=== PATIENT | female | born 1970 | race Caucasian/White ===

== ENCOUNTER → 2016-10-07 | Outpatient (CLI) | payer BC, OTHER ==
[~2016-10-07] MED LIST: ALPRAZOLAM; BUSPIRONE HCL7.5 MG PO; CHANTIX PO; CLOPIDOGREL75 MG PO; COUMADIN PO; DARVOCET-N 1001 TAB PO; DOXYCYCLINE PO; FLEXERIL10 MG PO; FLORINEF ACETA0.1 MG PO; HYDROCODON-ACE1 EA14 PO; LEXAPRO20 MG PO; LIPITOR PO; LODINE PO; LORTAB 10-3251 EACH PO; LORTAB 5-325 M1 EACH PO; LORTAB 5/500 TA1 TA1 PO; LYRICA PO; METAXALONE800 MG PO; NEURONTIN; NEURONTIN PO; PHENERGAN25 MG PO; PLAVIX PO; ROBAXIN PO; ROBAXIN500 MG PO; SKELAXIN PO; TRAMADOL HCL50 M1 PO; TUSSIN MAX15 MG/5 M1 PO; TYLENOL #3 PO; VIBRAMYCIN100 M1 PO; VICODIN 5/500 T1 TAB PO; VISTARIL50 MG PO; VOLTAREN75 MG PO; WELLBUTRIN PO
--- NOTE | ~2016-10-07 | CT134 ---
[facility] A Service of [facility] & [facility] RADIOLOGY TEXT RESULTS PATIENT: RICKY LOGAN LOCATION: CIVR : [birth year] UNIT #: [id number] AGE: [address]: Lisa Garcia MD SEX: F ORDER DR: [id number] [facility] [address] [place], [place] [address] [id number] O MR#: [id number] Acc #: [id number] NAME: RICKY LOGAN. : 1970 SEX: F STUDY DATE/TIME: 10/07/2016 9:26 UNIT: CIVR ROOM: STUDY DESCRIPTION: CT Guide Attending Physician: Lisa Garcia M.D. Ordering Physician: Lisa Garcia M.D. Primary Care Physician: Aurora Zhang M.D. MEDICAL IMAGING REPORT This report is preliminary unless electronic signature is present EXAM Bone marrow biopsy. INDICATIONS Iron deficiency anemia. This CT exam was performed with one or more of the following radiation dose reduction techniques: automatic exposure control, adjustment of mA and/or kV according to patient size, and iterative reconstruction. PROCEDURE Risks, benefits, and alternatives were explained to the patient and signed, informed consent was obtained. She was placed prone on the CT scanner gantry. Preliminary CT scan was performed through the region of interest and appropriate site overlying the patient's iliac bone was selected. The overlying skin was marked and the patient was prepped and draped in usual sterile fashion. Time-out was performed as per protocol. Skin and subcutaneous tissues were anesthetized with buffered lidocaine. Coaxial needle was then advanced into the left iliac bone and repeat CT scan confirmed appropriate positioning of the needle which was then advanced into the bone marrow. Bone marrow aspirate was obtained and then the needle was advanced further into the bone marrow and then removed achieving an adequate core sample. The patient did receive conscious sedation consisting of 4 mg of Versed and 175 mcg fentanyl and continuous monitoring was provided throughout the procedure. IMPRESSION Technically successful bone marrow biopsy as noted above. CT was used during the procedure and permanent images were saved. Dictated by... Cathryn Pozo M.D. [facility]. [facility] A Service of [facility] & [facility] RADIOLOGY TEXT RESULTS PATIENT: RICKY LOGAN LOCATION: [facility] #: [id number] : [birth year] UNIT #: [id number] AGE: [address]: Lisa Garcia MD SEX: F ORDER DR: THIS IS AN ELECTRONICALLY VERIFIED REPORT Cathryn Pozo M.D. at 10/08/2016 5:24 PM AFF/dj TD: 10/08/2016 11:56 JOB #: [id number] MEDICAL IMAGING REPORT COPY
[2016-10-07 07:47] LABS: HEMATOCRIT 43.9 % (35.0-45.0); HEMOGLOBIN 14.7 gm/dL (12.0-16.0); MEAN CORPUSCULAR HEMOGLOBIN 33.4 PG (28-34); MEAN CORPUSCULAR HGB CONC 33.4 g/dL (30-36); MEAN PLATELET VOLUME 8.4 FL (6.5-11.5); RED BLOOD COUNT 4.39 X10e (3.90-5.30); WHITE BLOOD COUNT 12.8 X10e3 (4.0-10.5)
[2016-10-07 08:06] LABS: PARTIAL THROMBOPLASTIN TIME 25.9 SECONDS (23.5-31.3)
== END | disposition home or self-care (01) ==
LOC: CIVR 07:06
PROVIDERS: Internal Medicine Hematology
DX: D50.9 Iron deficiency anemia, unspecified (principal); D72.823 Leukemoid reaction; F41.8 Other specified anxiety disorders; F17.200 Nicotine dependence, unspecified, uncomplicated; Z88.6 Allergy status to analgesic agent; Z88.2 Allergy status to sulfonamides; Z91.040 Latex allergy status; Z95.5 Presence of coronary angioplasty implant and graft
CPT/HCPCS: 38221; G0364; 36415; 77012; 85027; 85610; 85730; 88237; 88264; 88271; 88275; 88305; 88311; 99144; 99152; 99153; J2250; J3010

== ENCOUNTER 2017-03-06 16:31 | Emergency (ER) | payer OTHER ==
--- NOTE | ~2017-03-06 | CR72 ---
[facility] A Service of [facility] RADIOLOGY TEXT RESULTS PATIENT: RICKY LOGAN LOCATION: SED : [birth year] UNIT #: [id number] AGE: [address]: Winston Espinoza MD SEX: F ORDER DR: [id number] [place] [address] [id number] E MR#: [id number] Acc #: [id number] NAME: RICKY LOGAN. : 1970 SEX: F STUDY DATE/TIME: 03/06/2017 16:52 UNIT: SED ROOM: STUDY DESCRIPTION: CR Chest Single View Portable Attending Physician: Winston Espinoza M.D. Ordering Physician: Winston Espionza M.D. Primary Care Physician: Aurora Zhang M.D. MEDICAL IMAGING REPORT This report is preliminary unless electronic signature is present. EXAM Frontal chest, 03/06/2017 INDICATION Shortness of air, overdose today. Symptoms began prior to arrival. TECHNIQUE Frontal chest was performed. COMPARISON 08/31/2016 FINDINGS Cardiac silhouette within normal limits. The vascularity is unremarkable. Lungs are clear. No effusion or pneumothorax. IMPRESSION Negative chest. No change. Dictated by... Guero Tompkins M.D. THIS IS AN ELECTRONICALLY VERIFIED REPORT Guero Tompkins M.D. at 03/07/2017 11:43 AM YELITZA/richie TD: 03/07/2017 02:57 JOB #: [id number] [facility] A Service of [facility] RADIOLOGY TEXT RESULTS PATIENT: RICKY LOGAN LOCATION: SED : [birth year] UNIT #: [id number] AGE: [address]: Winston Espinoza MD SEX: F ORDER DR: MEDICAL IMAGING REPORT Page 1 of 1
--- NOTE | ~2017-03-06 | EKG ---
PATIENT: RICKY LOGAN UNIT #: [id number] Ventricular Rate: 58 BPM Atrial Rate: 58 BPM P-R Interval: 136 ms QRS Duration: 86 ms Q-T Interval: 482 ms QTC Calculation(Bezet): 473 ms P [place]: 77 degrees Calculated R [place]: 75 degrees Calculated T [place]: 79 degrees Diagnosis Line: Sinus bradycardia Diagnosis Line: Septal infarct , age undetermined Diagnosis Line: Abnormal ECG Diagnosis Line: Diagnosis Line: Confirmed by JULIET SAPP MD ([id number]) on Diagnosis Line: 03/07/2017 3:25:27 PM INTERPRETING MD: SEKOU VASQUEZ
[~2017-03-06 16:31] MED LIST changes: -BUSPIRONE HCL7.5 MG PO; -HYDROCODON-ACE1 EA14 PO; -LEXAPRO20 MG PO; -METAXALONE800 MG PO; -VISTARIL50 MG PO
[2017-03-06] MEDS ORDERED: METAXALONE800 MG PO (16:52)
[2017-03-06] MEDS ORDERED: BUSPIRONE HCL7.5 MG PO (16:53)
[2017-03-06] MEDS ORDERED: HYDROCODON-ACE1 EA14 PO (16:55)
[2017-03-06] MEDS ORDERED: LEXAPRO20 MG PO (16:55)
[2017-03-06 17:28] LABS: BASOPHIL# 0.2 X10e3 (0-0.3); BASOPHIL% 1.4 % (0-2.5); EOSINOPHIL# 0.4 X10e3 (0-0.7); EOSINOPHIL% 3.5 % (0.0-7.0); HEMATOCRIT 41.1 % (35.0-45.0); LYMPHOCYTE% 27.2 % (17.0-45.0); MEAN PLATELET VOLUME 9.6 FL (6.5-11.5); MONOCYTE# 0.9 X10e3 (0-1.0); NEUTROPHIL# 6.5 X10e3 (1.5-7.1); NEUTROPHIL% 59.9 % (40-75); PLATELET COUNT 219 X10e3 (140-420); RED BLOOD COUNT 4.37 X10e (3.90-5.30); RED CELL DISTRIBUTION WIDTH 12.8 % (11.0-15.5); WHITE BLOOD COUNT 10.9 X10e3 (4.0-10.5)
[2017-03-06 17:33] LABS: DIFF IND NO
[2017-03-06 17:46] LABS: ACETAMINOPHEN 25 ug/mL; ALBUMIN SERUM 4.1 g/dL (3.5-5.0); ALKALINE PHOSPHATASE 63 U/L (32-92); ALT (SGPT) 12 U/L (10-40); AST (SGOT) 16 U/L (10-42); BILIRUBIN, DIRECT 0.1 mg/dL (0.0-0.2); BILIRUBIN,INDIRECT 0.8 mg/dL (0.0-0.9); BILIRUBIN,TOTAL 0.9 mg/dL (0.2-2.0); BLOOD UREA NITROGEN 17 mg/dL (9-23); BUN/CREATININE RATIO 21.25; CARBON DIOXIDE 23 mmol/L (22-31); CHLORIDE 103 mmol/L (100-111); CREATININE SERUM 0.8 mg/dL (0.6-1.4); GLOM FILT RATE Estimated 87.9 mL/min (>60); GLUCOSE FASTING 112 mg/dL (70-110); POTASSIUM 3.3 mmol/L (3.5-5.1); PROTEIN TOTAL SERUM 7.3 g/dL (6.0-8.3); SALICYLATE <4.0 mg/dL; SODIUM 137 mmol/L (135-145)
[2017-03-06 17:48] LABS: ALCOHOL BLOOD <5 mg/dL (0)
[2017-03-06 18:20] LABS: AMPHETAMINE POS (NEG); BARBITURATES NEG (NEG); BENZODIAZEPINES NEG (NEG); COCAINE NEG (NEG); MARIJUANA NEG (NEG); OPIATES POS (NEG); TRICYCLIC ANTIDEPRESSANTS NEG (NEG); U METHADONE NEG (NEG)
[2017-04-29] MEDS ORDERED: VOLTAREN75 MG PO (19:02)
[2017-04-29] MEDS ORDERED: VISTARIL50 MG PO (19:03)
== END 2017-03-06 19:05 | disposition home or self-care (01) ==
LOC: SED 16:31
PROVIDERS: Emergency Medicine
DX: T40.2X1A Poisoning by other opioids, accidental (unintentional), initial encounter (principal); F31.9 Bipolar disorder, unspecified; I10 Essential (primary) hypertension; E03.9 Hypothyroidism, unspecified; F17.210 Nicotine dependence, cigarettes, uncomplicated; Z90.49 Acquired absence of other specified parts of digestive tract; Z90.710 Acquired absence of both cervix and uterus; Z88.2 Allergy status to sulfonamides; Z79.899 Other long term (current) drug therapy; Z95.818 Presence of other cardiac implants and grafts
CPT/HCPCS: 36415; 71010; 80048; 80076; 80307; 85025; 93005; 96374; 99284; G0480; J2405